=== PATIENT | female | born 1980 | race African-American/Black ===

== ENCOUNTER 2018-10-08 06:06 | Emergency (ER) | payer SELFPAY ==
--- NOTE | 2018-10-08 06:30 | ER Document Report ---
HPI - HPI Time Seen by Provider: 10/08/18 06:29 Pain Level: 3 Context: Patient is a 38-year-old female who presents to the emergency department with a chief complaint of right ankle pain. She was playing softball yesterday and she jumped up and landed on her ankle. States that it only hurts when she walks on her ankle and when she applies pressure on it. Her ankle rotated medially. She is able to walk. She denies any past medical history. Does not take any me dications. - CONSTITUTIONAL Constitutional: DENIES: Fever, Chills - EENT EENT: DENIES: Sore Throat - RESPIRATORY Respiratory: DENIES: Coughing - REPRODUCTIVE Reproductive: DENIES: : - MUSCULOSKELETAL Musculoskeletal: REPORTS: Extremity pain - Right ankle. DENIES: Back Pain, Neck Pain - DERM Skin Color: Normal Skin Problems: None Past Medical History - Social History Smoking Status: Current Every Day Smoker Frequency of alcohol use: None Drug Abuse: None Family History: Reviewed & Not Pertinent Vertical Provider Document - CONSTITUTIONAL Agree With Documented VS: Yes Exam Limitations: No Limitations General Appearance: No Apparent Distress - INFECTION CONTROL TRAVEL OUTSIDE OF THE [place] IN LAST 30 DAYS: No - HEENT HEENT: Atraumatic, Normocephalic, PERRLA - NECK Neck: Normal Inspection - RESPIRATORY Respiratory: No Respiratory Distress - CARDIOVASCULAR Cardiovascular: Regular Rate, Regular Rhythm Pulses: Normal: Radial, Posterior tibial, Dorsalis pedis - MUSCULOSKELETAL/EXTREMETIES Musculoskeletal/Extremeties: FROM, Non-Tender, Edema - Very mild edema to right lateral ankle - NEURO Level of Consciousness: Awake, Alert, Appropriate Motor/Sensory: No Motor Deficit, No Sensory Deficit - DERM Integumentary: Warm, Dry, No Rash Course - Re-evaluation Re-evalutation: 10/08/18 07:22 Patient has a 0.3 mm avulsion fragment noted on her x-ray. She will be placed in an Albert wrap, ankle stirrup, and given crutches. She will follow-up with orthopedics in regards to this visit. Follow-up precautions were given. Verbal discharge instructions were given to the patient. They verbalized understanding. They are stable for discharge. - Vital Signs Vital signs: Temp Pulse Resp BP Pulse Ox 98 F 74 16 141/96 H 98 10/08/18 06:11 10/08/18 06:11 10/08/18 06:11 10/08/18 06:11 10/08/18 06:11 Procedures - Immobilization Right Ankle Pre-Proc Neuro Vasc Exam: Normal Immobilizer type: Albert wrap, Ankle stirrup, Crutches Performed by: LIZETTE Post-Proc Neuro Vasc Exam: Normal, Unchanged from pre-exam Alignment checked and good: Yes Discharge - Discharge Clinical Impression: Right ankle pain Qualifiers: Chronicity: acute Qualified Code(s): M25.571 - Pain in right ankle and joints of right foot Avulsion fracture of lateral malleolus of right fibula Qualifiers: Encounter type: initial encounter Fracture type: closed Qualified Code(s): S82.61XA - Displaced fracture of lateral malleolus of right fibula, initial encounter for closed fracture Condition: Stable Disposition: HOME, SELF-CARE Instructions: Use of Crutches ([facility]), Ice & Elevation ([facility]) Additional Instructions: You are seen today in the emergency department for right ankle pain. There is a very small fracture noted. You can take Tylenol 1000 mg and ibuprofen 600 mg every 6 hours as needed for your pain. Please use your crutches. Elevate your leg. You are also being placed in an ankle stirrup to help contact your ankle. Please follow-up with orthopedics in regards to this visit. Forms: Return to Work Referrals: LAURIE MCKEE MD [Primary Care Provider] - Follow up as needed VIMAL DANIEL MD [ACTIVE STAFF] - Follow up in 3-5 days
--- NOTE | 2018-10-08 07:20 | RADIOLOGY REPORT (SQ) ---
EXAM DESCRIPTION: XR ANKLE 3 OR MORE VIEWS COMPLETED DATE/TME: 10/08/2018 06:29 CLINICAL HISTORY: 38 years Female, right ankle pain COMPARISON: None. Findings: 0.3 cm avulsion fragment at the inferior aspect of the right lateral malleolus, indeterminate age. Bones, joints, and soft tissues of the RIGHT XR ANKLE 3 OR MORE VIEWS appear otherwise unremarkable. IMPRESSION: 0.3 cm avulsion fragment at the inferior aspect of the right lateral malleolus, indeterminate age.
[2018-10-08 07:52] VITALS: BP 136/85
== END 2018-10-08 07:55 | disposition home or self-care (01) ==
LOC: ER 06:06
DX: S82.61XA Displaced fracture of lateral malleolus of right fibula, initial encounter for closed fracture (principal); M25.571 Pain in right ankle and joints of right foot; X58.XXXA Exposure to other specified factors, initial encounter; F17.200 Nicotine dependence, unspecified, uncomplicated
CPT/HCPCS: 99283; 73610; L4350